=== PATIENT | female | born 1955 | race Caucasian/White ===

== ENCOUNTER 2017-11-04 16:06 | Emergency (ER) | payer OTHER ==
[~2017-11-04] VITALS: Ht 160 cm; Wt 51.3 kg
[~2017-11-04 16:06] MED LIST: ACETAMINOPHEN325 M1 PO; AMITRIPTYLINE H25 M4 PO; CLONAZEPAM 1 MG1 M1 PO; COLACE 100 MG100 MG PO; CYCLOBENZAPRINE5 MG PO; CYMBALTA60 MG PO; DESYREL150 MG PO; DUONEB 2.5-0.5 M3 ML INH; FLEXERIL PO; FUROSEMIDE 20 M20 M1 PO; GABAPENTIN 100100 MG PO; GLUCOTROL5 MG PO; HYDROCODON-ACE1 EAC5 PO; IBUPROFEN 800800 M1 PO; LEVAQUIN 250 M250 MG PO; LIALDA1.2 GM PO; LIPITOR 10 MG10 M1 PO; MELATONIN5 M2 PO; MIDODRINE HCL 55 M1 PO; NEXIUM 40 MG CA40 M1 PO; NICOTINE TRANSD14 M1 TRANSDERM; NICOTINE TRANSD21 M1 TD; NORCO 10-325 T1 EACH PO; NORCO 5-325 TA1 EACH PO; OXYCODONE HCL 55 MG PO; PERCOCET 5-3251 EACH PO; PREDNISONE 10 M10 M1 PO; PROAIR HFA8.5 GM INH; RANITIDINE 150150 M1 PO; ZPAK PO; [UNRECOGNIZED DRUG - OTHER] PO
[2017-11-04] MEDS ORDERED: KEFLEX500 M1 PO (18:28)
[2017-11-04] MEDS ORDERED: NORCO 5-325 TA1 EACH PO (18:28)
[2017-11-04 18:37] VITALS: BP 119/74
== END 2017-11-04 18:40 | disposition home or self-care (01) ==
LOC: M.ERS 16:06
DX: S62.101A Fracture of unspecified carpal bone, right wrist, initial encounter for closed fracture (principal); Z23 Encounter for immunization; E78.00 Pure hypercholesterolemia, unspecified; F41.9 Anxiety disorder, unspecified; K21.9 Gastro-esophageal reflux disease without esophagitis; F32.9 Major depressive disorder, single episode, unspecified; M06.9 Rheumatoid arthritis, unspecified; F17.210 Nicotine dependence, cigarettes, uncomplicated; Z88.5 Allergy status to narcotic agent; Z88.8 Allergy status to other drugs, medicaments and biological substances; W18.39XA Other fall on same level, initial encounter; Y93.89 Activity, other specified; Y92.89 Other specified places as the place of occurrence of the external cause; Y99.8 Other external cause status